=== PATIENT | male | born 1970 | race Caucasian/White ===

== ENCOUNTER 2017-09-16 15:16 | Emergency (ER) | payer BC ==
[~2017-09-16] VITALS: Ht 172.7 cm; Wt 87.5 kg
[2017-09-16 15:41] VITALS: Ht 172.7 cm; Wt 87.5 kg
[2017-09-16 16:58] VITALS: BP 109/79
== END 2017-09-16 16:58 | disposition home or self-care (01) ==
LOC: ED 15:16
DX: G62.9 Polyneuropathy, unspecified (principal); Z71.6 Tobacco abuse counseling
CPT/HCPCS: 99406